=== PATIENT | female | born 1975 | race Caucasian/White ===

== ENCOUNTER → 2020-06-13 | Outpatient (CLI) | payer SELFPAY | LOC: M LABSMTC 13:27 | PROVIDERS: ATTEND Pediatrics | DX: Z20.822 Contact with and (suspected) exposure to COVID-19 (principal) ==

== ENCOUNTER → 2020-06-20 | Outpatient (CLI) | payer SELFPAY | LOC: M LABSMTC 12:55 | PROVIDERS: ATTEND Pediatrics | DX: Z20.822 Contact with and (suspected) exposure to COVID-19 (principal) ==

== ENCOUNTER → 2020-06-28 | Outpatient (CLI) | payer SELFPAY | LOC: M LABSMTC 10:19 | PROVIDERS: ATTEND Pediatrics | DX: Z11.52 Encounter for screening for COVID-19 (principal) ==

== ENCOUNTER 2020-09-22 04:58 | Observation (INO) | payer OTHER, SELFPAY ==
[~2020-09-22] VITALS: Ht 170.2 cm; Wt 193.2 kg
[2020-09-22] MEDS ORDERED: ONDANSETRON 4MG/2ML VIAL IV ONE (05:10)
[2020-09-22] MEDS ORDERED: NS 1,000 ML IV ONE ×2 (05:10→13:00)
[2020-09-22 05:42] LABS: BASO % 0.5 % (0.0-1.0); EOS # 0.1 10^3/uL (0.0-0.5); EOS % 1.4 % (0.0-3.0); HEMATOCRIT 38.8 % (36.0-47.0); HEMOGLOBIN 12.5 g/dl (12.0-15.5); LYMPH # 2.3 10^3/uL (1.5-5.0); LYMPH % 27.9 % (24.0-44.0); MEAN CORPUSCULAR HEMOGLOBIN 29.1 pg (27.0-33.0); MEAN CORPUSCULAR HGB CONC 32.2 g/dl (32.0-36.5); MEAN CORPUSCULAR VOLUME 90.2 fl (80.0-96.0); MONO # 0.5 10^3/uL (0.0-0.8); MONO % 6.3 % (2.0-8.0); NEUTROPHILS # 5.1 10^3/uL (1.5-8.5); NEUTROPHILS % 63.3 % (36.0-66.0); PLATELET COUNT, AUTOMATED 244 10^3/uL (150-450); WHITE BLOOD COUNT 8.1 10^3/uL (4.0-10.0)
[2020-09-22 06:11] LABS: ALBUMIN 3.1 GM/DL (3.2-5.2); ALT/SGPT 21 U/L (12-78); BILIRUBIN,DIRECT < 0.1 MG/DL (0.0-0.2); BILIRUBIN,TOTAL 0.3 MG/DL (0.2-1.0); BLOOD UREA NITROGEN 17 MG/DL (7-18); CALCIUM LEVEL 9.1 MG/DL (8.5-10.1); CARBON DIOXIDE LEVEL 23 MEQ/L (21-32); CHLORIDE LEVEL 109 MEQ/L (98-107); CK-MB VALUE MASS < 1.0 NG/ML (<3.6); CPK CREATINE PHOSPHOKINASE 119 U/L (26-192); CREATININE FOR GFR 0.51 MG/DL (0.55-1.30); GLOMERULAR FILTRATION RATE > 60.0 (>58); GLUCOSE, FASTING 138 MG/DL (70-100); LIPASE 117 U/L (73-393); MB/CK RELATIVE INDEX 0.84 (< OR =4); POTASSIUM SERUM 4.1 MEQ/L (3.5-5.1); SODIUM LEVEL 140 MEQ/L (136-145); TOTAL PROTEIN 6.7 GM/DL (6.4-8.2); TROPONIN I < 0.02 NG/ML (< 0.10)
[2020-09-22 06:19] LABS: RSV AMPLIFICATION NEGATIVE (NEGATIVE)
[2020-09-22 07:09] LABS: FREE T4 0.88 NG/DL (0.76-1.46)
[2020-09-22 07:22] LABS: HCG, SERUM QUALITATIVE NEGATIVE (NEGATIVE)
[2020-09-22 08:13] LABS: VITAMIN B12 LEVEL 225 PG/ML (247-911)
[2020-09-22] MEDS ORDERED: CEPACOL LOZENGE MT STA (13:00)
[2020-09-22] MEDS ORDERED: MECLIZINE 25 MG TABLET PO ONE (13:05)
[2020-09-22] MEDS ORDERED: diazePAM 10MG/2ML SYRINGE (J3360 PER 5MG) IV ONE (15:30)
[2020-09-22] MEDS ORDERED: HOME MED LIST COMPLETE! XX SCH (15:40)
[2020-09-22] MEDS ORDERED: ONDANSETRON 4 MG ORAL DISINTEGRATING TAB SL PRN (16:20)
[2020-09-22 19:00] VITALS: BP 161/98
[2020-09-22] MEDS ORDERED: MECLIZINE 25 MG TABLET PO PRN (20:00)
[2020-09-22] MEDS: ACETAMINOPHEN TAB 650MG DOSE (2X325MG) PO PRN (20:08)
[2020-09-22 21:00] VITALS: BP 157/92
[2020-09-22] MEDS ORDERED: ENOXAPARIN 40MG/0.4ML SYRINGE (J1650 PER 10MG) SC SCH (21:00)
[2020-09-23] MEDS ORDERED: UNRESOLVED CLARIFICATION ENTRY XX SCH (00:01)
[2020-09-23 08:01] LABS: HEMOGLOBIN 11.9 g/dl (12.0-15.5); MEAN CORPUSCULAR HEMOGLOBIN 29.5 pg (27.0-33.0); MEAN CORPUSCULAR HGB CONC 32.2 g/dl (32.0-36.5); MEAN CORPUSCULAR VOLUME 91.8 fl (80.0-96.0); PLATELET COUNT, AUTOMATED 237 10^3/uL (150-450); RED BLOOD COUNT 4.03 10^6/uL (4.00-5.40); WHITE BLOOD COUNT 7.5 10^3/uL (4.0-10.0)
[2020-09-23 08:22] LABS: BLOOD UREA NITROGEN 11 MG/DL (7-18); CALCIUM LEVEL 8.5 MG/DL (8.5-10.1); CARBON DIOXIDE LEVEL 27 MEQ/L (21-32); CHLORIDE LEVEL 110 MEQ/L (98-107); CREATININE FOR GFR 0.57 MG/DL (0.55-1.30); GLOMERULAR FILTRATION RATE > 60.0 (>58); GLUCOSE, FASTING 105 MG/DL (70-100); POTASSIUM SERUM 3.8 MEQ/L (3.5-5.1); SODIUM LEVEL 143 MEQ/L (136-145)
[2020-09-23] MEDS: ACETAMINOPHEN TAB 650MG DOSE (2X325MG) PO PRN (08:25)
[2020-09-23] MEDS ORDERED: CYANOCOBALAMIN 500 MCG TAB PO SCH (09:00)
[2020-09-23] MEDS ORDERED: VITA500T40 PO (10:31)
[2020-09-23] MEDS ORDERED: ONDA4TAB6 SL (10:31)
== END 2020-09-23 13:00 | disposition home or self-care (01) ==
LOC: M ED 04:58 → M ED INP 16:15 → M MS5PR 18:57
PROVIDERS: ADMIT Internal Medicine; ATTEND Internal Medicine
DX: R42 Dizziness and giddiness (principal); Z79.899 Other long term (current) drug therapy
CPT/HCPCS: 36415; 70450; 80048; 80076; 81001; 82550; 82553; 82607; 83690; 84439; 84443; 84484; 84703; 85025; 85027; 87088; 87186; 87505; 87631; 93005; 93041; 96361; 96374; 96375; 97112; 97116; 97161; 97530; 99285; J2405; J3360; Q0162

== ENCOUNTER 2020-10-02 09:54 | Outpatient (RCR) | payer OTHER ==
[~2020-10-02 09:54] MED LIST: ONDA4TAB6 SL; VITA500T40 PO
== END 2020-10-17 ==
LOC: M PT 09:54
PROVIDERS: ATTEND Physician Assistant Medical
DX: H81.10 Benign paroxysmal vertigo, unspecified ear (principal)

== ENCOUNTER → 2020-11-03 | Outpatient (REF) | payer OTHER ==
[2020-11-03 14:20] LABS: CHOLESTEROL RISK RATIO 4.923 (<5)
[2020-11-03 14:24] LABS: TOTAL 25(OH) VITAMIN D 21.6 NG/ML (30.0-100.0)
[2020-11-03 15:08] LABS: HEMOGLOBIN A1c 5.8 %
== END ==
LOC: M SFHCADAM 09:42
PROVIDERS: ATTEND Physician Assistant Medical
DX: R73.01 Impaired fasting glucose (principal); E55.9 Vitamin D deficiency, unspecified

== ENCOUNTER → 2020-11-03 | Outpatient (CLI) | payer OTHER ==
--- NOTE | 2020-11-03 10:22 | REP ---
INDICATION: ACUTE BILATERL MIDLINE LOW BACK PAIN W/O SCIATICA COMPARISON: None. TECHNIQUE: AP, lateral, bilateral oblique, and coned-down views of the lumbar spine. FINDINGS: Alignment and lordosis maintained. Vertebral bodies are intact. No acute fracture/compression injury or subluxation. Mild endplate sclerosis with very subtle marginal spurring/osteophyte formation noted along with disc space narrowing at L5-S1. IMPRESSION: Multilevel degenerative changes as noted above. <Electronically signed by Dariel Stone > 11/03/20 [id number]
== END ==
LOC: M ADAMS 09:59
PROVIDERS: ATTEND Physician Assistant Medical
DX: M54.5 Low back pain (principal); M51.36 Other intervertebral disc degeneration, lumbar region

== ENCOUNTER → 2020-11-14 | Outpatient (CLI) | payer OTHER ==
--- NOTE | 2020-11-14 21:46 | ECHO ---
ECHOCARDIOGRAM DATE OF PROCEDURE: 11/14/2020 Age: 45 Gender: Female Height: 167 cm Weight: 191 kg REFERRING PHYSICIAN: Valerie Centeno PA-C INDICATION: Generalized edema 2D MEASUREMENTS: IVS 1.1 cm LV 5.0 cm LVPW 1.2 cm LA 3.7 cm Aorta 3.2 cm Left atrial volume index 21 DOPPLER MEASUREMENT Mitral E wave velocity 61 Mitral A 59 E prime septal 8.3 E prime lateral 12.2 FINDINGS: This study is of very limited technical quality corresponding to patient's body habitus, underlying sinus rhythm. Normal LV size with borderline LVH and overall probably normal or near normal LV systolic function based on limited view. Right ventricle was poorly visualized. Both atria appear grossly normal. The aortic and mitral valves appear grossly normal. Tricuspid and pulmonic valves were not well seen. No pericardial effusion is noted. Inferior vena cava was not seen. Aortic root and aortic arch appear normal. Abdominal aorta was not visualized. Doppler interrogation reveals competent mitral, aortic and tricuspid valves. Mitral inflow pattern and tissue Doppler imaging of the mitral annulus revealed likely normal diastolic function. CONCLUSIONS: 1. Study is of markedly limited technical quality corresponding to patient's body habitus. 2. Normal LV size with borderline LVH and overall normal or near normal LV systolic function. Normal diastolic function. 3. RV was not well seen. 4. No significant aortic, mitral and tricuspid valvular disease. 5. Unable to estimate central venous pressure and pulmonary artery pressure.
== END ==
LOC: M CARPUL 12:23
PROVIDERS: ATTEND Physician Assistant Medical
DX: R60.1 Generalized edema (principal); E53.8 Deficiency of other specified B group vitamins

== ENCOUNTER → 2020-12-01 | Outpatient (CLI) | payer OTHER ==
--- NOTE | 2020-12-03 17:23 | HOLTMON ---
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 Underlying rhythm was sinus. Rate varied from 48-130 beats per minute. There were no significant pauses. There was no significant ectopy. Diary events were not recorded contemporaneously and were not associated with arrythmia.This is a normal Holter result. If there is further concern about an electrophysiological cause of these symptoms consider an event recorder, or loop recorder. Electronically Signed on 12-03-2020 17:22:47 EDT by Avery Hightower
== END ==
LOC: M EKG 08:41
PROVIDERS: ATTEND Physician Assistant Medical
DX: R42 Dizziness and giddiness (principal)

== ENCOUNTER → 2020-12-14 | Outpatient (REF) | payer BC ==
[2020-12-14 12:54] LABS: APPEARANCE, URINE HAZY (CLEAR); BACTERIA, URINE AUTO NEGATIVE (NEGATIVE); BILIRUBIN, URINE AUTO NEGATIVE (NEGATIVE); BLOOD, URINE BLOOD NEGATIVE (NEGATIVE); CALCIUM OXALATE CRYSTALS SMALL; COLOR, URINE YELLOW (YELLOW); GLUCOSE, URINE (UA) AUTO NEGATIVE (NEGATIVE); KETONE, URINE AUTO NEGATIVE (NEGATIVE); LEUKOCYTE ESTERASE, URINE AUTO NEGATIVE (NEGATIVE); MUCUS, URINE SMALL (NEGATIVE); NITRITE, URINE AUTO NEGATIVE (NEGATIVE); PROTEIN, URINE AUTO NEGATIVE (NEGATIVE); RBC, URINE AUTO 0 /HPF (0-3); SPECIFIC GRAVITY URINE AUTO 1.033 (1.002-1.035); SQUAMOUS EPITHELIAL CELL UR AU 1 /HPF (0-6); UROBILINOGEN, URINE AUTO 0.2 mg/dL (0.0-2.0); WBC, URINE AUTO 2 /HPF (0-3)
[2020-12-14 13:21] LABS: BLOOD UREA NITROGEN 21 MG/DL (7-18); CALCIUM LEVEL 9.4 MG/DL (8.5-10.1); CARBON DIOXIDE LEVEL 26 MEQ/L (21-32); CHLORIDE LEVEL 109 MEQ/L (98-107); CREATININE FOR GFR 0.67 MG/DL (0.55-1.30); GLOMERULAR FILTRATION RATE > 60.0 (>58); GLUCOSE, FASTING 120 MG/DL (70-100); POTASSIUM SERUM 4.1 MEQ/L (3.5-5.1); SODIUM LEVEL 142 MEQ/L (136-145)
== END ==
LOC: M SFHCADAM 09:33
PROVIDERS: ATTEND Physician Assistant Medical
DX: I10 Essential (primary) hypertension (principal); R31.9 Hematuria, unspecified

== ENCOUNTER → 2020-12-14 | Outpatient (CLI) | payer BC ==
--- NOTE | 2020-12-14 11:55 | REP ---
INDICATION: ACUTE PAIN OF RIGHT KNEE COMPARISON: None TECHNIQUE: Five views FINDINGS: There is tricompartmental marginal osteophytosis and tricompartmental narrowing particularly affecting the lateral compartment. There is no acute fracture, dislocation, or subluxation. IMPRESSION: Chronic changes as described above. <Electronically signed by Claude Johnson > 12/14/20 [id number]
== END ==
LOC: M ADAMS 09:36
PROVIDERS: ATTEND Physician Assistant Medical
DX: M25.561 Pain in right knee (principal); M17.11 Unilateral primary osteoarthritis, right knee

== ENCOUNTER → 2021-02-13 | Outpatient (REF) | payer BC | LOC: M SFHCADAM 08:39 | PROVIDERS: ATTEND Physician Assistant Medical | DX: E55.9 Vitamin D deficiency, unspecified (principal) ==

== ENCOUNTER 2021-03-13 07:39 | Outpatient (RCR) | payer BC | END 2021-03-19 | LOC: M PT 07:39 | PROVIDERS: ATTEND Otolaryngology | DX: M26.602 Left temporomandibular joint disorder, unspecified (principal) ==

== ENCOUNTER → 2021-04-09 | Outpatient (CLI) | payer BC | LOC: M PLAIMG 13:53 | PROVIDERS: ATTEND Otolaryngology | DX: R42 Dizziness and giddiness (principal); Z53.9 Procedure and treatment not carried out, unspecified reason ==

== ENCOUNTER 2021-04-10 09:10 | Outpatient (RCR) | payer BC | END 2021-04-16 | LOC: M PT 09:10 | PROVIDERS: ATTEND Otolaryngology | DX: M26.602 Left temporomandibular joint disorder, unspecified (principal) ==

== ENCOUNTER 2021-05-28 16:24 | Emergency (ER) | payer BC ==
[~2021-05-28] VITALS: Ht 170.2 cm; Wt 193.2 kg
[2021-05-28] MEDS ORDERED: NS 1,000 ML IV ONE (19:50)
[2021-05-28] MEDS ORDERED: KETOROLAC 30 MG/ML 1ML VIAL IV ONE (19:50)
[2021-05-28 20:13] LABS: BASO % 0.5 % (0.0-1.0); EOS # 0.1 10^3/uL (0.0-0.5); EOS % 1.1 % (0.0-3.0); HEMATOCRIT 41.7 % (36.0-47.0); HEMOGLOBIN 13.6 g/dl (12.0-15.5); LYMPH # 2.2 10^3/uL (1.5-5.0); LYMPH % 27.7 % (24.0-44.0); MEAN CORPUSCULAR HEMOGLOBIN 29.6 pg (27.0-33.0); MEAN CORPUSCULAR HGB CONC 32.6 g/dl (32.0-36.5); MEAN CORPUSCULAR VOLUME 90.7 fl (80.0-96.0); MONO # 0.3 10^3/uL (0.0-0.8); MONO % 3.9 % (2.0-8.0); NEUTROPHILS # 5.3 10^3/uL (1.5-8.5); NEUTROPHILS % 66.3 % (36.0-66.0); PLATELET COUNT, AUTOMATED 285 10^3/uL (150-450)
[2021-05-28 20:40] LABS: ALBUMIN 3.6 GM/DL (3.2-5.2); ALT/SGPT 29 U/L (12-78); BILIRUBIN,DIRECT < 0.1 MG/DL (0.0-0.2); BILIRUBIN,TOTAL 0.4 MG/DL (0.2-1.0); BLOOD UREA NITROGEN 14 MG/DL (7-18); CALCIUM LEVEL 9.5 MG/DL (8.5-10.1); CARBON DIOXIDE LEVEL 29 MEQ/L (21-32); CHLORIDE LEVEL 105 MEQ/L (98-107); CREATININE FOR GFR 0.69 MG/DL (0.55-1.30); GLOMERULAR FILTRATION RATE > 60.0 (>58); GLUCOSE, FASTING 102 MG/DL (70-100); LIPASE 95 U/L (73-393); POTASSIUM SERUM 4.3 MEQ/L (3.5-5.1); SODIUM LEVEL 141 MEQ/L (136-145); TOTAL PROTEIN 7.6 GM/DL (6.4-8.2)
[2021-05-28 21:33] VITALS: BP 132/60
== END 2021-05-28 22:30 | disposition home or self-care (01) ==
LOC: M ED 16:24
DX: R10.9 Unspecified abdominal pain (principal); N20.0 Calculus of kidney; E66.9 Obesity, unspecified; I50.9 Heart failure, unspecified; K58.9 Irritable bowel syndrome, unspecified; Z87.442 Personal history of urinary calculi; R42 Dizziness and giddiness; R91.1 Solitary pulmonary nodule; Z79.899 Other long term (current) drug therapy
CPT/HCPCS: 74176; 80048; 80076; 81001; 83690; 84702; 85025; 87880; 96361; 96374; 99284; J1885

== ENCOUNTER → 2021-06-25 | Outpatient (REF) | payer BC ==
[2021-06-25 17:54] LABS: APPEARANCE, URINE HAZY (CLEAR); BACTERIA, URINE AUTO NEGATIVE (NEGATIVE); BILIRUBIN, URINE AUTO NEGATIVE (NEGATIVE); BLOOD, URINE BLOOD 1+ (NEGATIVE); CALCIUM OXALATE CRYSTALS MODERATE; COLOR, URINE YELLOW (YELLOW); GLUCOSE, URINE (UA) AUTO NEGATIVE (NEGATIVE); KETONE, URINE AUTO NEGATIVE (NEGATIVE); LEUKOCYTE ESTERASE, URINE AUTO NEGATIVE (NEGATIVE); MUCUS, URINE SMALL (NEGATIVE); NITRITE, URINE AUTO NEGATIVE (NEGATIVE); PROTEIN, URINE AUTO NEGATIVE (NEGATIVE); RBC, URINE AUTO 0 /HPF (0-3); SPECIFIC GRAVITY URINE AUTO 1.023 (1.002-1.035); SQUAMOUS EPITHELIAL CELL UR AU 1 /HPF (0-6); UROBILINOGEN, URINE AUTO 0.2 mg/dL (0.0-2.0); WBC, URINE AUTO 2 /HPF (0-3)
== END ==
LOC: M SMT 16:39
PROVIDERS: ATTEND Nurse Practitioner Women's Health
DX: R31.29 Other microscopic hematuria (principal)

== ENCOUNTER → 2021-07-17 | Outpatient (CLI) | payer BC ==
[~2021-07-17] MED LIST changes: +ISOVUE-370 76% 100ML VIAL As Ordered ONE
== END ==
LOC: M RAD 15:13
PROVIDERS: ATTEND Nurse Practitioner Women's Health
DX: R31.29 Other microscopic hematuria (principal); R91.1 Solitary pulmonary nodule; K76.0 Fatty (change of) liver, not elsewhere classified; Z90.49 Acquired absence of other specified parts of digestive tract; R16.2 Hepatomegaly with splenomegaly, not elsewhere classified; N20.0 Calculus of kidney; N28.1 Cyst of kidney, acquired
CPT/HCPCS: 74178; Q9967

== ENCOUNTER → 2021-07-18 | Outpatient (CLI) | payer BC ==
[~2021-07-18] MED LIST changes: -ISOVUE-370 76% 100ML VIAL As Ordered ONE
== END ==
LOC: M SOG 08:27
PROVIDERS: ATTEND Orthopaedic Surgery Adult Reconstructive Orthopaedic Surgery
DX: M25.561 Pain in right knee (principal); M17.11 Unilateral primary osteoarthritis, right knee

== ENCOUNTER → 2021-08-23 | Outpatient (CLI) | payer BC ==
[~2021-08-23] MED LIST changes: +ACET-683 PO; +CALC-218 PO; +ERGO500029; +IBUP-1114 PO
[2021-08-23 18:55] LABS: HEMATOCRIT 40.3 % (36.0-47.0); HEMOGLOBIN 13.9 g/dl (12.0-15.5); MEAN CORPUSCULAR HEMOGLOBIN 30.8 pg (27.0-33.0); MEAN CORPUSCULAR HGB CONC 34.5 g/dl (32.0-36.5); MEAN CORPUSCULAR VOLUME 89.4 fl (80.0-96.0); PLATELET COUNT, AUTOMATED 254 10^3/uL (150-450); RED BLOOD COUNT 4.51 10^6/uL (4.00-5.40); WHITE BLOOD COUNT 8.4 10^3/uL (4.0-10.0)
[2021-08-23 19:00] LABS: APPEARANCE, URINE CLEAR (CLEAR); BACTERIA, URINE AUTO NEGATIVE (NEGATIVE); BILIRUBIN, URINE AUTO NEGATIVE (NEGATIVE); BLOOD, URINE BLOOD NEGATIVE (NEGATIVE); COLOR, URINE YELLOW (YELLOW); GLUCOSE, URINE (UA) AUTO NEGATIVE (NEGATIVE); KETONE, URINE AUTO NEGATIVE (NEGATIVE); LEUKOCYTE ESTERASE, URINE AUTO NEGATIVE (NEGATIVE); MUCUS, URINE SMALL (NEGATIVE); NITRITE, URINE AUTO NEGATIVE (NEGATIVE); PROTEIN, URINE AUTO NEGATIVE (NEGATIVE); RBC, URINE AUTO 0 /HPF (0-3); SPECIFIC GRAVITY URINE AUTO 1.013 (1.002-1.035); SQUAMOUS EPITHELIAL CELL UR AU 0 /HPF (0-6); UROBILINOGEN, URINE AUTO 0.2 mg/dL (0.0-2.0); WBC, URINE AUTO 0 /HPF (0-3)
[2021-08-23 19:03] LABS: BLOOD UREA NITROGEN 10 MG/DL (7-18); CALCIUM LEVEL 9.4 MG/DL (8.5-10.1); CARBON DIOXIDE LEVEL 27 MEQ/L (21-32); CHLORIDE LEVEL 106 MEQ/L (98-107); CREATININE FOR GFR 0.65 MG/DL (0.55-1.30); GLOMERULAR FILTRATION RATE > 60.0 (>58); GLUCOSE, FASTING 96 MG/DL (70-100); SODIUM LEVEL 140 MEQ/L (136-145)
[2021-08-23 19:05] LABS: INR 0.92; PROTHROMBIN TIME 12.8 SECONDS (12.7-14.5)
== END ==
LOC: M LAB 17:45
PROVIDERS: ATTEND Nurse Practitioner Women's Health
DX: Z01.818 Encounter for other preprocedural examination (principal); N20.0 Calculus of kidney

== ENCOUNTER → 2021-08-26 | Outpatient (CLI) | payer BC | LOC: M LABSMTC 09:55 | PROVIDERS: ATTEND Anesthesiology | DX: Z01.818 Encounter for other preprocedural examination (principal); Z11.52 Encounter for screening for COVID-19 ==

== ENCOUNTER 2021-08-30 07:04 | Day surgery (SDC) | payer BC ==
[~2021-08-30] VITALS: Ht 170.2 cm; Wt 192.5 kg
[2021-08-30] MEDS ORDERED: LR 1,000 ML IV SCH ×2 (07:45→10:35)
[2021-08-30] MEDS ORDERED: LIDOCAINE PRES-FREE 2% 10ML AMP As Ordered ONE (08:17)
[2021-08-30] MEDS ORDERED: propofoL 200 MG/20 ML VIAL As Ordered ONE (08:17)
[2021-08-30] MEDS ORDERED: MIDAZOLAM INJ 2MG/2ML VIAL (J2250 PER 1MG) As Ordered ONE (08:18)
[2021-08-30] MEDS ORDERED: fentaNYL 100 MCG/2 ML INJECTION As Ordered ONE (08:18)
[2021-08-30] MEDS ORDERED: ceFAZolin SOD 1 GM in D5W MINI-BAG PLUS 50 ML IV ONE (09:00)
[2021-08-30] MEDS ORDERED: ceFAZolin SOD 2 GM in IV 1 EA IV ONE (09:00)
[2021-08-30] MEDS ORDERED: ISOVUE-300 61% 50ML VIAL As Ordered ONE (09:04)
[2021-08-30] MEDS ORDERED: SUGAMMADEX SODIUM 500 MG/5 ML VIAL (BRIDION) As Ordered ONE (10:11)
[2021-08-30] MEDS ORDERED: dexameTHASONE 4 MG/ML 1ML VIAL (J1100 PER 1MG) As Ordered ONE (10:13)
[2021-08-30] MEDS ORDERED: ONDANSETRON 4MG 2ML VIAL As Ordered ONE (10:13)
[2021-08-30] MEDS ORDERED: METOCLOPRAMIDE INJ 10MG/2ML VIAL (J2765 PER 1) As Ordered ONE (10:13)
[2021-08-30] MEDS ORDERED: ROCURONIUM BROMIDE 50 MG/5 ML VIAL As Ordered ONE (10:13)
[2021-08-30] MEDS ORDERED: ONDANSETRON 4MG 2ML VIAL IV PRN (10:35)
[2021-08-30] MEDS ORDERED: oxyCODONE 5MG TAB PO PRN (10:35)
[2021-08-30] MEDS ORDERED: MORPHINE 2 MG/ML 1ML VIAL IV PRN (10:35)
[2021-08-30] MEDS ORDERED: METOCLOPRAMIDE INJ 10MG/2ML VIAL (J2765 PER 1) IV PRN (10:35)
[2021-08-30] MEDS ORDERED: OXYB5TAB10 PO (10:46)
[2021-08-30 13:05] VITALS: BP 137/74
[2021-08-30] MEDS ORDERED: oxyBUTYnin 5 MG TAB PO PRN (13:45)
[2021-08-30] MEDS ORDERED: PERCOCET 5MG/325MG TAB PO PRN (13:45)
[2021-09-04 18:07] LABS: CA Oxalate Dihy 90 % (.); Ca Ox Monohydrate 10 % (.); Size 6x5 mm (.)
== END 2021-08-30 13:05 | disposition home or self-care (01) ==
LOC: M SDC 07:04
PROVIDERS: ATTEND Urology
DX: N20.0 Calculus of kidney (principal); Z87.442 Personal history of urinary calculi; E66.01 Morbid (severe) obesity due to excess calories; Z79.899 Other long term (current) drug therapy
CPT/HCPCS: 52332; 52352; 74018; 74420; 82365; C1769; C1894; C2617; J0690; J1100; J2250; J2405; J2765; J3010; Q9967

== ENCOUNTER → 2021-09-17 | Outpatient (REF) | payer BC ==
[~2021-09-17] MED LIST changes: +OXYB5TAB10 PO
== END ==
LOC: M SMT 13:04
PROVIDERS: ATTEND Urology
DX: N39.0 Urinary tract infection, site not specified (principal)

== ENCOUNTER → 2021-10-03 | Outpatient (CLI) | payer BC | LOC: M SLEEP 20:00 | PROVIDERS: ATTEND Internal Medicine Pulmonary Disease | DX: G47.33 Obstructive sleep apnea (adult) (pediatric) (principal) ==

== ENCOUNTER → 2021-11-05 | Outpatient (REF) | payer BC | LOC: M LAB REF 10:30 | PROVIDERS: ATTEND Advanced Practice Midwife | DX: Z12.4 Encounter for screening for malignant neoplasm of cervix (principal) | CPT/HCPCS: 87624; G0123 ==

== ENCOUNTER → 2021-12-03 | Outpatient (REF) | payer BC | LOC: M SFHCADAM 15:56 | PROVIDERS: ATTEND Physician Assistant | DX: R05.1 Acute cough (principal) ==

== ENCOUNTER 2021-12-12 16:38 | Emergency (ER) | payer BC ==
[~2021-12-12] VITALS: Ht 170.2 cm; Wt 188.0 kg
[2021-12-12] MEDS ORDERED: NS 1,000 ML IV ONE (21:55)
[2021-12-12] MEDS ORDERED: MECLIZINE 25 MG TABLET PO ONE (21:55)
[2021-12-12] MEDS ORDERED: METOCLOPRAMIDE INJ 10MG/2ML VIAL (J2765 PER 1) IV ONE (21:55)
[2021-12-12 22:39] LABS: BASO % 0.3 % (0.0-1.0); EOS # 0.1 10^3/uL (0.0-0.5); EOS % 0.6 % (0.0-3.0); HEMATOCRIT 44.6 % (36.0-47.0); HEMOGLOBIN 14.2 g/dl (12.0-15.5); LYMPH # 2.3 10^3/uL (1.5-5.0); LYMPH % 18.3 % (24.0-44.0); MEAN CORPUSCULAR HGB CONC 31.8 g/dl (32.0-36.5); MONO # 0.5 10^3/uL (0.0-0.8); MONO % 3.9 % (2.0-8.0); NEUTROPHILS # 9.7 10^3/uL (1.5-8.5); NEUTROPHILS % 76.3 % (36.0-66.0); PLATELET COUNT, AUTOMATED 295 10^3/uL (150-450); WHITE BLOOD COUNT 12.7 10^3/uL (4.0-10.0)
[2021-12-12 23:15] LABS: RSV AMPLIFICATION NEGATIVE (NEGATIVE)
[2021-12-12 23:26] LABS: ALBUMIN 3.7 GM/DL (3.2-5.2); ALT/SGPT 57 U/L (12-78); BILIRUBIN,TOTAL 0.5 MG/DL (0.2-1.0); BLOOD UREA NITROGEN 14 MG/DL (7-18); CALCIUM LEVEL 9.5 MG/DL (8.5-10.1); CARBON DIOXIDE LEVEL 28 MEQ/L (21-32); CHLORIDE LEVEL 103 MEQ/L (98-107); CREATININE FOR GFR 0.73 MG/DL (0.55-1.30); GLOMERULAR FILTRATION RATE > 60.0 (>58); GLUCOSE, FASTING 125 MG/DL (70-100); POTASSIUM SERUM 3.7 MEQ/L (3.5-5.1); SODIUM LEVEL 138 MEQ/L (136-145); TOTAL PROTEIN 7.7 GM/DL (6.4-8.2)
[2021-12-12] MEDS ORDERED: LevoFLOXacin 500 MG TABLET PO ONE (23:55)
[2021-12-13] MEDS ORDERED: MECL1TAB31 PO (00:18)
[2021-12-13] MEDS ORDERED: LEVO1TAB39 PO (00:18)
[2021-12-13] MEDS ORDERED: ONDA4TAB6 PO (00:18)
[2021-12-13 00:58] VITALS: BP 127/75
== END 2021-12-13 00:59 | disposition home or self-care (01) ==
LOC: M ED 16:38
DX: H72.2X3 Other marginal perforations of tympanic membrane, bilateral (principal); R42 Dizziness and giddiness; R05.9 Cough, unspecified; R00.2 Palpitations; R11.2 Nausea with vomiting, unspecified; K58.9 Irritable bowel syndrome, unspecified; I50.9 Heart failure, unspecified; E66.9 Obesity, unspecified; Z79.899 Other long term (current) drug therapy
CPT/HCPCS: 71046; 80053; 85025; 87631; 96361; 96374; 99284; J2765

== ENCOUNTER → 2022-02-06 | Outpatient (CLI) | payer BC ==
[~2022-02-06] MED LIST changes: +LEVO1TAB39 PO; +MECL1TAB31 PO; +ONDA4TAB6 PO
== END ==
LOC: M SLEEP 20:00
PROVIDERS: ATTEND Internal Medicine Pulmonary Disease
DX: G47.33 Obstructive sleep apnea (adult) (pediatric) (principal)

== ENCOUNTER → 2022-02-14 | Outpatient (CLI) | payer BC | LOC: M SOG 08:30 | PROVIDERS: ATTEND Orthopaedic Surgery Adult Reconstructive Orthopaedic Surgery | DX: M79.645 Pain in left finger(s) (principal); S62.621A Displaced fracture of middle phalanx of left index finger, initial encounter for closed fracture; X58.XXXA Exposure to other specified factors, initial encounter; Y92.9 Unspecified place or not applicable; Y93.9 Activity, unspecified; Y99.9 Unspecified external cause status ==

== ENCOUNTER → 2022-03-25 | Outpatient (CLI) | payer BC | LOC: M ADAMS 14:38 | PROVIDERS: ATTEND Urology | DX: N20.0 Calculus of kidney (principal) ==

== ENCOUNTER → 2022-06-13 | Outpatient (CLI) | payer BC | LOC: M SOG 07:50 | PROVIDERS: ATTEND Orthopaedic Surgery | DX: Z87.81 Personal history of (healed) traumatic fracture (principal) ==

== ENCOUNTER → 2022-07-12 | Outpatient (REF) | LOC: M EMP 14:10 | PROVIDERS: ATTEND Family Medicine | DX: Z20.822 Contact with and (suspected) exposure to COVID-19 (principal) ==

== ENCOUNTER → 2022-08-08 | Outpatient (CLI) | payer BC | LOC: M RAD 13:53 | PROVIDERS: ATTEND Internal Medicine Pulmonary Disease | DX: R91.1 Solitary pulmonary nodule (principal) ==

== ENCOUNTER → 2022-08-26 | Outpatient (REF) | payer BC ==
[2022-08-26 17:13] LABS: HEMATOCRIT 39.7 % (36.0-47.0); HEMOGLOBIN 12.8 g/dl (12.0-15.5); MEAN CORPUSCULAR HEMOGLOBIN 29.9 pg (27.0-33.0); MEAN CORPUSCULAR HGB CONC 32.2 g/dl (32.0-36.5); MEAN CORPUSCULAR VOLUME 92.8 fl (80.0-96.0); PLATELET COUNT, AUTOMATED 251 10^3/uL (150-450); RED BLOOD COUNT 4.28 10^6/uL (4.00-5.40); WHITE BLOOD COUNT 8.1 10^3/uL (4.0-10.0)
[2022-08-26 17:31] LABS: THYROID STIMULATING HORMONE 1.759 uIU/ML (0.55-4.78)
== END ==
LOC: M LABDRWAD 16:29
PROVIDERS: ATTEND Internal Medicine Pulmonary Disease
DX: R06.00 Dyspnea, unspecified (principal)

== ENCOUNTER → 2023-04-11 | Outpatient (REF) ==
[~2023-04-11] MED LIST changes: +MECL-209 PO; -MECL1TAB31 PO; -OXYB5TAB10 PO; +OXYB5TAB14 PO
== END ==
LOC: M EMP 11:07
PROVIDERS: ATTEND Family Medicine
DX: Z01.89 Encounter for other specified special examinations (principal)

== ENCOUNTER 2023-04-25 18:22 | Emergency (ER) | payer BC ==
[~2023-04-25] VITALS: Ht 167.6 cm; Wt 204.1 kg
[2023-04-25 18:22] VITALS: TEMP 98.2
[2023-04-25] MEDS ORDERED: HYDR-3490 PO (18:28)
[2023-04-25 19:07] LABS: BASO % 0.5 % (0.0-1.0); EOS # 0.1 10^3/uL (0.0-0.5); EOS % 0.7 % (0.0-3.0); HEMATOCRIT 37.4 % (36.0-47.0); HEMOGLOBIN 12.4 g/dl (12.0-15.5); LYMPH # 1.8 10^3/uL (1.5-5.0); LYMPH % 21.6 % (24.0-44.0); MEAN CORPUSCULAR HGB CONC 33.2 g/dl (32.0-36.5); MEAN CORPUSCULAR VOLUME 90.3 fl (80.0-96.0); MONO # 0.5 10^3/uL (0.0-0.8); MONO % 5.5 % (2.0-8.0); NEUTROPHILS % 71.2 % (36.0-66.0); PLATELET COUNT, AUTOMATED 247 10^3/uL (150-450); RED BLOOD COUNT 4.14 10^6/uL (4.00-5.40); WHITE BLOOD COUNT 8.4 10^3/uL (4.0-10.0)
[2023-04-25 19:32] LABS: CPK CREATINE PHOSPHOKINASE 115 U/L (34-145)
[2023-04-25 19:33] LABS: BLOOD UREA NITROGEN 17 MG/DL (9-23); CALCIUM LEVEL 8.9 MG/DL (8.5-10.1); CARBON DIOXIDE LEVEL 26 MMOL/L (20-31); CHLORIDE LEVEL 105 MMOL/L (98-107); CK-MB VALUE MASS 1.1 NG/ML (<3.6); CREATININE FOR GFR 0.53 MG/DL (0.55-1.30); GLOMERULAR FILTRATION RATE > 60.0 (>58); GLUCOSE, FASTING 117 MG/DL (60-100); MB/CK RELATIVE INDEX 0.95 (< OR =4); POTASSIUM SERUM 3.7 MMOL/L (3.5-5.1); SODIUM LEVEL 137 MMOL/L (136-145)
[2023-04-25] MEDS: NITROGLYCERIN 2% OINT 1 GM *U/D* PKT TOP ONE (19:39)
[2023-04-25 20:35] LABS: D-DIMER QUANT 0.29 ug/mL (<0.5); INR 1.09; PROTHROMBIN TIME 13.8 SECONDS (12.5-14.5)
[2023-04-25 20:46] LABS: C REACTIVE PROTEIN QUANTITATIV 3.5 MG/DL (<1.0)
[2023-04-25 20:47] LABS: CK-MB VALUE MASS < 1.0 NG/ML (<3.6)
[2023-04-25 20:48] LABS: ALBUMIN 3.3 G/DL (3.2-5.2); BILIRUBIN,DIRECT 0.1 MG/DL (<0.4); BILIRUBIN,TOTAL 0.4 MG/DL (0.3-1.2); MAGNESIUM LEVEL 1.9 MG/DL (1.8-2.4); TOTAL PROTEIN 6.4 G/DL (5.7-8.2)
[2023-04-25 20:49] LABS: CPK CREATINE PHOSPHOKINASE 102 U/L (34-145); MB/CK RELATIVE INDEX 0.98 (< OR =4)
[2023-04-25 20:50] LABS: RSV AMPLIFICATION NEGATIVE (NEGATIVE)
[2023-04-25] MEDS: ASPIRIN 81MG CHEW TABLET PO ONE (21:26)
[2023-04-25] MEDS: MAALOX 30 ML SUSP *UDC PO ONE (21:28)
[2023-04-25 21:29] VITALS: BP 147/66
[2023-04-25] MEDS: NITROGLYCERIN 0.4MG SUBL TABLET SL STA (21:29)
[2023-04-25 21:45] VITALS: BP 147/65; O2SAT 94
[2023-04-25] MEDS ORDERED: ASPI81TA26 PO (21:55)
== END 2023-04-25 22:05 | disposition home or self-care (01) ==
LOC: M ED 18:22
DX: I20.9 Angina pectoris, unspecified (principal); I10 Essential (primary) hypertension; G47.33 Obstructive sleep apnea (adult) (pediatric); E66.01 Morbid (severe) obesity due to excess calories; Z79.899 Other long term (current) drug therapy

== ENCOUNTER → 2023-05-09 | Outpatient (REF) | payer BC ==
[~2023-05-09] MED LIST changes: +ASPI81TA26 PO; +HYDR-3490 PO
[2023-05-09 13:56] LABS: BLOOD UREA NITROGEN 15 MG/DL (9-23); CALCIUM LEVEL 8.8 MG/DL (8.5-10.1); CARBON DIOXIDE LEVEL 29 MMOL/L (20-31); CHLORIDE LEVEL 109 MMOL/L (98-107); CREATININE FOR GFR 0.66 MG/DL (0.55-1.30); GLOMERULAR FILTRATION RATE > 60.0 (>58); GLUCOSE, FASTING 115 MG/DL (60-100); POTASSIUM SERUM 4.2 MMOL/L (3.5-5.1); SODIUM LEVEL 141 MMOL/L (136-145)
== END ==
LOC: M SFHCADAM 08:50
PROVIDERS: ATTEND Physician Assistant
DX: I11.9 Hypertensive heart disease without heart failure (principal)

== ENCOUNTER → 2023-06-03 | Outpatient (CLI) | payer BC ==
[~2023-06-03] MED LIST changes: +ISOVUE-370 76% 100ML VIAL As Ordered ONE
== END ==
LOC: M RAD 17:01
PROVIDERS: ATTEND Physician Assistant
DX: R07.9 Chest pain, unspecified (principal)
CPT/HCPCS: 71275; Q9967

== ENCOUNTER 2024-02-05 17:07 | Emergency (ER) | payer BC ==
[~2024-02-05] VITALS: Ht 167.6 cm; Wt 204.0 kg
[~2024-02-05 17:07] MED LIST changes: -ISOVUE-370 76% 100ML VIAL As Ordered ONE; +ONDA-282 PO; +ONDA-282 SL; -ONDA4TAB6 PO; -ONDA4TAB6 SL
[2024-02-05] MEDS ORDERED: METO1TAB7 (17:15)
[2024-02-05] MEDS ORDERED: LISI5TAB11 (17:15)
[2024-02-05] MEDS ORDERED: HYDR12.55 (17:15)
[2024-02-05] MEDS ORDERED: LOSA25TA13 (17:15)
[2024-02-05 18:26] LABS: BASO % 0.4 % (0.0-1.0); EOS # 0.1 10^3/uL (0.0-0.5); EOS % 0.8 % (0.0-3.0); HEMATOCRIT 39.4 % (36.0-47.0); LYMPH # 1.3 10^3/uL (1.5-5.0); LYMPH % 16.8 % (24.0-44.0); MEAN CORPUSCULAR VOLUME 90.8 fl (80.0-96.0); MONO # 0.5 10^3/uL (0.0-0.8); NEUTROPHILS # 5.7 10^3/uL (1.5-8.5); NEUTROPHILS % 75.6 % (36.0-66.0); PLATELET COUNT, AUTOMATED 231 10^3/uL (150-450); RED BLOOD COUNT 4.34 10^6/uL (4.00-5.40); WHITE BLOOD COUNT 7.5 10^3/uL (4.0-10.0)
[2024-02-05 18:37] LABS: INR 0.98; PROTHROMBIN TIME 13.3 SECONDS (12.5-14.5)
[2024-02-05 18:51] LABS: BLOOD UREA NITROGEN 16 MG/DL (9-23); CALCIUM LEVEL 9.2 MG/DL (8.5-10.1); CARBON DIOXIDE LEVEL 26 MMOL/L (20-31); CHLORIDE LEVEL 105 MMOL/L (98-107); CREATININE FOR GFR 0.51 MG/DL (0.55-1.30); GLOMERULAR FILTRATION RATE > 60.0 (>58); GLUCOSE, FASTING 145 MG/DL (60-100); POTASSIUM SERUM 3.8 MMOL/L (3.5-5.1); SODIUM LEVEL 141 MMOL/L (136-145)
[2024-02-05] MEDS: dexAMETHasone 20MG/5ML VIAL IV ONE (22:40)
[2024-02-05] MEDS: FLUTICASONE PROP 0.05% NASAL SPRAY 16 GM (FLONASE) NARES ONE (23:00)
[2024-02-05 23:01] VITALS: BP 150/63; TEMP 98; O2SAT 96
== END 2024-02-05 23:11 | disposition home or self-care (01) ==
LOC: M ED 17:07
DX: J05.0 Acute obstructive laryngitis [croup] (principal); J06.9 Acute upper respiratory infection, unspecified; I51.7 Cardiomegaly; K58.9 Irritable bowel syndrome, unspecified; G47.30 Sleep apnea, unspecified; Z79.82 Long term (current) use of aspirin; Z79.811 Long term (current) use of aromatase inhibitors; Z79.899 Other long term (current) drug therapy; Z86.79 Personal history of other diseases of the circulatory system
CPT/HCPCS: 71046; 80048; 83880; 85025; 85610; 87486; 87581; 87633; 87798; 87880; 96374; 99284; J1100

== ENCOUNTER → 2024-11-17 | Outpatient (REF) | payer BC ==
[~2024-11-17] MED LIST changes: +HYDR12.55; +LISI5TAB11; +LOSA25TA13; +METO1TAB7
[2024-11-17 15:09] LABS: ALT/SGPT 28 U/L (7.0-40); AST/SGOT 18 U/L (<34); CALCIUM LEVEL 9.5 MG/DL (8.5-10.1); CARBON DIOXIDE LEVEL 26 MMOL/L (20-31); CHLORIDE LEVEL 103 MMOL/L (98-107); CHOLESTEROL LEVEL 185 MG/DL (<200); CHOLESTEROL RISK RATIO 4.52 (<5); CREATININE FOR GFR 0.66 MG/DL (0.55-1.30); GLOMERULAR FILTRATION RATE > 90.0 (>58); LDL CHOLESTEROL 83.3 MG/DL (<100); NON-HDL-C 144.1 MG/DL; POTASSIUM SERUM 4.3 MMOL/L (3.5-5.1); SODIUM LEVEL 140 MMOL/L (136-145); TRIGLYCERIDES LEVEL 304 MG/DL (<150)
[2024-11-17 15:10] LABS: TOTAL 25(OH) VITAMIN D 16.6 NG/ML (20.0-100.0)
[2024-11-17 15:11] LABS: FREE T4 1.22 NG/DL (0.89-1.76)
[2024-11-17 15:15] LABS: BASO # 0.1 10^3/uL (0.0-0.2); BASO % 0.5 % (0.0-1.0); EOS # 0.1 10^3/uL (0.0-0.5); EOS % 1.3 % (0.0-3.0); LYMPH # 2.4 10^3/uL (1.5-5.0); LYMPH % 23.5 % (24.0-44.0); MONO # 0.6 10^3/uL (0.0-0.8); MONO % 5.5 % (2.0-8.0); NEUTROPHILS # 7.1 10^3/uL (1.5-8.5); NEUTROPHILS % 68.8 % (36.0-66.0); PLATELET COUNT, AUTOMATED 294 10^3/uL (150-450)
[2024-11-17 15:35] LABS: ESTIMATED AVERAGE GLUCOSE 126.0 MG/DL (60-110)
== END ==
LOC: M SFHCADAM 08:46
PROVIDERS: ATTEND Physician Assistant
DX: I11.9 Hypertensive heart disease without heart failure (principal); E55.9 Vitamin D deficiency, unspecified; E66.01 Morbid (severe) obesity due to excess calories